=== PATIENT | male | born 1985 | race African-American/Black ===

== ENCOUNTER 2016-08-17 05:14 | Emergency (ER) | payer SELFPAY ==
[~2016-08-17] VITALS: Ht 180.3 cm; Wt 77.3 kg
[2016-08-17 05:15] VITALS: BP 141/84
== END 2016-08-17 06:11 | disposition home or self-care (01) ==
LOC: ED 05:43
DX: J45.41 Moderate persistent asthma with (acute) exacerbation (principal); K08.89 Other specified disorders of teeth and supporting structures
CPT/HCPCS: 93005; 99283

== ENCOUNTER 2016-12-12 03:37 | Emergency (ER) | payer OTHER ==
[~2016-12-12] VITALS: Ht 180.3 cm; Wt 73.8 kg
[2016-12-12 03:45] VITALS: BP 120/78
== END 2016-12-12 05:13 | disposition home or self-care (01) ==
LOC: ED 03:56
DX: K62.89 Other specified diseases of anus and rectum (principal); R10.2 Pelvic and perineal pain
CPT/HCPCS: 99281; 99283

== ENCOUNTER 2020-08-18 23:20 | Emergency (ER) | payer MEDICAID ==
[~2020-08-18] VITALS: Ht 175.3 cm; Wt 81.4 kg
[2020-08-18] MEDS ORDERED: DIPHENHYDRAMINE 50 MG/ML, 1ML ONE (23:41)
[2020-08-18] MEDS ORDERED: EPINEPHRINE 1 MG/ML, 1ML ONE (23:41)
[2020-08-18] MEDS ORDERED: methylPREDNISolone SOD SUCC 125 MG/2 ML ONE (23:41)
[2020-08-18] MEDS ORDERED: ALBUTEROL/IPRATROPIUM 2.5MG/0.5MG, 3 ML ONE (23:41)
[2020-08-18] MEDS ORDERED: FAMOTIDINE 20 MG/2 ML ONE (23:41)
--- NOTE | 2020-08-18 23:53 | NUR ---
MEDICATED PER EMAR FOR ANAPHALAXIS D/T ACCIDENTAL INGESTION OF AMOXICILLIN AT 11PM (1 HOUR AGO)-(THOUGHT IT WAS SEPERATE MEDICATION) WITH KNOWN HX OF ALLERGY TO SAME THROAT TIGHTNESS, WHEEZING AND WELTING RASH TO ENTIRE BODY (EVEN SOLE OF FEET) PLACED ON CASH APPLICATIONS COORDINATOR-WILL MONITOR CLOSELY
[2020-08-18] MEDS ORDERED: ALBUTEROL SULFATE 2.5 MG/3 ML ONE (23:59)
[2020-08-19] MEDS ORDERED: methylPREDNISolone SOD SUCC 125 MG/2 ML IVPush ONE
[2020-08-19] MEDS ORDERED: SODIUM CHLORIDE 0.9% 1,000ML IVBOLUS ONE
[2020-08-19] MEDS ORDERED: FAMOTIDINE 20 MG/2 ML IVPush ONE
[2020-08-19] MEDS ORDERED: DIPHENHYDRAMINE 50 MG/ML, 1ML IVPush ONE
[2020-08-19] MEDS ORDERED: ALBUTEROL SULFATE 2.5MG/0.5ML NPPB ONE
[2020-08-19] MEDS ORDERED: EPINEPHRINE 1 MG/ML, 1ML SQ ONE
--- NOTE | 2020-08-19 00:21 | NUR ---
NEBULIZER COMPLETE WITH REASSESSMENT: SOB/WHEEZING IMPROVED FROM 12/05 TO 05/07, RASH ITCHINESS IMPROVED FROM 10/05 TO 08/05 ERP MADE AWARE WILL CONTINUE TO MONITOR
[2020-08-19 00:49] VITALS: BP 127/83
--- NOTE | 2020-08-19 00:49 | NUR ---
Erp to bedside for ze-hrry-egcz for d/c. Information Technology Intern agreeable PAtient asvised on rebound sxs to watch for Walked out without evebnt in care of girlfriend
== END 2020-08-19 00:52 | disposition home or self-care (01) ==
LOC: ED 23:50
DX: L50.0 Allergic urticaria (principal); J98.01 Acute bronchospasm; F17.210 Nicotine dependence, cigarettes, uncomplicated
CPT/HCPCS: 94640; 96372; 96374; 96375; 99284; J0171; J1200; J2930; J7030

== ENCOUNTER 2021-01-24 20:33 | Emergency (ER) | payer MEDICAID ==
[~2021-01-24] VITALS: Ht 175.3 cm; Wt 77.7 kg
[2021-01-24 23:06] VITALS: BP 132/74
== END 2021-01-24 23:07 | disposition home or self-care (01) ==
LOC: ED 21:39
DX: K29.00 Acute gastritis without bleeding (principal); F17.200 Nicotine dependence, unspecified, uncomplicated
CPT/HCPCS: 36415; 80053; 81003; 83690; 85025; 87491; 87591; 96372; 99283; J0696